=== PATIENT | female | born 1950 | race Caucasian/White ===

== ENCOUNTER → 2018-11-08 | Outpatient (CLI) | payer OTHER ==
--- NOTE | 2018-11-09 08:39 | HC ---
[facility] [place] [address] CONSULTATION Name: BRODERICK DICKERSON Room #: REG ANDRES M.Elza.#: [id number] Admission: 11/08/18 ������������������ Attend Phys: Racheal Badillo DO Discharge: ������������������ Date of : 50 Report #: [id number] THIS REPORT FOR: //name// CC: Shahram Badillo DATE OF SERVICE: 11/08/2018 PATIENT OF: Dr. Shahram Klein. CHIEF COMPLAINT: This is a very pleasant 68-year-old white female with a chief complaint of sudden onset of severe abdominal crampy pain followed by hematochezia. The patient states that last Monday she had a urinary tract infection and she was given Cipro for that. She did not know if it was related, but when she ate ice cream last night after taking her Cipro, she developed sudden onset of the pain and this was followed shortly thereafter by hematochezia. She has had episodes like this in the past that have been secondary to ischemic colitis and this sounds like it might be another episode. PAST MEDICAL HISTORY: Significant for hypertension and episodes of ischemic colitis. PAST SURGICAL HISTORY: Significant for section, and she had a total abdominal hysterectomy with bilateral salpingo-oophorectomy. ALLERGIES: No known drug allergies. MEDICATIONS: Prior to this time included vitamin D, multiple vitamins, losartan, hydrochlorothiazide, amlodipine, Toprol XL, aspirin and p.r.n. Xanax that she does not use very often. SOCIAL HISTORY: She does not smoke. She drinks alcohol occasionally. FAMILY HISTORY: Negative for colon polyps, colon cancer, Crohn's disease and ulcerative colitis, except for Crohn's disease in a cousin. This was her first cousin. REVIEW OF SYSTEMS: She denies any dysphagia or odynophagia. She does have gastroesophageal reflux symptoms. She has no history of a hiatal hernia or peptic ulcer disease. Her weight has been stable. Her appetite is good. She denies any nausea or vomiting, change in weight, change in appetite, jaundice, hepatitis, cholelithiasis, cholecystitis or pancreatitis. She denies any increasing constipation or diarrhea. Denies any hematemesis or melena. She has [facility] [address] [place] [address] CONSULTATION Name: BRODERICK DICKERSON Room #: REG [facility] Yanira.#: [id number] Admission: 11/08/18 ������������������ Attend Phys: Racheal Badillo DO Discharge: ������������������ Date of : 50 Report #: [id number] had hematochezia as described above in the chief complaint. She denies any abdominal pain at this time, but did have crampy, diffuse lower abdominal pain prior to the hematochezia. She denies any fevers or chills, shortness of breath, chest pain, dizziness or syncope. PHYSICAL EXAMINATION: GENERAL: Reveals a well-developed, well-nourished 68-year-old white female in no apparent distress at the time of the examination. She is awake, alert and oriented x 4 and cooperative and very pleasant to converse with. HEENT: She is normocephalic and atraumatic and anicteric. HEART: Rate and rhythm are regular with a normal S1 and S2. LUNGS: Clear bilaterally. ABDOMEN: Soft. Bowel sounds are present in all 4 quadrants. There is no palpable organomegaly or mass. There is some mild tenderness in the lower abdomen, but no rebound or guarding. EXTREMITIES: Warm and dry. No peripheral cyanosis, clubbing or edema. NEUROLOGIC: She appears grossly intact without lateralizing signs. IMPRESSION: 1. Crampy abdominal pain followed by defecation and then hematochezia. The patient has a history of ischemic colitis and it sounds like this may be another episode. 2. Hypertension. 3. Gastroesophageal reflux. 4. History of colon polyps. The patient is overdue for colonoscopy. RECOMMENDATIONS: My recommendations are to proceed with a flexible sigmoidoscopy at this time. We will also recommend that she have a full colonoscopy as soon as possible because she has had adenomatous colon polyps in the past and the last colonoscopy was 6 or 8 years ago. Thank you very much once again for allowing me to participate in her care. ��������������������������������������������� <ELECTRONICALLY SIGNED> ���������������������������������������� By: Racheal Badillo DO ��������������������������������������������� 11/09/18 0839 [id number] Racheal Badillo DO /nt
--- NOTE | 2018-11-09 08:40 | O ---
[facility] [place] [address] OPERATIVE REPORT Name: BRODERICK DICKERSON Room #: REG ANDRES M.Elza.#: [id number] Admission: 11/08/18 ������������������ Attend Phys: Racheal Badillo DO Discharge: ������������������ Date of : 50 Report #: [id number] THIS REPORT FOR: //name// CC: Shahram Badillo FLEXIBLE SIGMOIDOSCOPY WITH BIOPSIES. INDICATION FOR PROCEDURE: Evaluate crampy lower abdominal pain followed by the passage of stools and then followed by bright red blood per rectum. Informed consent for this procedure was obtained prior to the administration of any medication. The risks of the procedure, which include but are not limited to bleeding, perforation, infection, complications of sedation and the possibility I could miss something were explained to the patient and she has indicated her consent by signing. With the patient in the left lateral decubitus position, digital rectal exam was performed and no abnormalities were palpated. Then, the Olympus colonoscope was introduced through the anal sphincter and advanced under direct visualization to the mid transverse colon. Findings are noted on withdrawal of the scope. In the midtransverse colon, the mucosa lining of the colon appears normal, but it abruptly changes to an ulcerated erythematous, ecchymotic-appearing colon. This extends from the midtransverse colon in a linear fashion all the way down to the proximal sigmoid colon at about 35 cm. Multiple biopsies were obtained throughout this area for histopathology to evaluate for possible ischemia, which I suspect this is. Good hemostasis was noted after all of the biopsies. The unaffected mucosa appeared normal completely. The distal sigmoid colon appears normal. Rectum, normal mucosa. Retroflex view did not reveal any further abnormalities. The scope was withdrawn. The patient went to the recovery area in stable condition. She tolerated the procedure well. IMPRESSION: Segment of ulcerated ecchymotic-appearing mucosa extending from 35 cm to the midtransverse colon. Biopsies pending. RECOMMENDATIONS: To await the biopsy results. I will ask that she continue taking her previously prescribed Cipro that she was taking for urinary tract infection for this ulcerated colon that I suspect is ischemia. She is not having any abdominal cramping pain, so I think that her collateral circulation has been adequate. I would recommend she continue 1 aspirin daily as prophylaxis against possible recurrence of this ischemia. [address] [address] OPERATIVE REPORT Name: BRODERICK DICKERSON Room #: REG ANDRES Alegria#: [id number] Admission: 11/08/18 ������������������ Attend Phys: Racheal Badillo DO Discharge: ������������������ Date of : 50 Report #: [id number] Thank you very much once again for allowing me to participate in her care, Dr. Klein. ��������������������������������������������� <ELECTRONICALLY SIGNED> ���������������������������������������� By: Racheal Badillo DO ��������������������������������������������� 11/09/18 0840 [id number] Racheal Badillo DO /nt
--- NOTE | 2018-11-13 10:07 | PATH ---
[facility] [address] [place] [address] PATHOLOGY RPT PROCEDURE Name: PAVITHRA DICKERSON Room #: REG Ravindra MAlyssaR.#: [id number] ������������������ Admission: 11/08/18 ������������������ Date of : 50 Discharge: Report #: [id number] Path Case #: [id number] [facility] Accession Number: [id number] . 01 Material submitted: . colon - BIOPSY OF DESCENDING SEGMENTAL ULCERATED COLON. Modifiers: descending . 01 Clinical history: . R/O ischemic . 02 Diagnosis: Large intestine, descending segmental ulceration colon R/O ischemia, endoscopic biopsy: - Compatible with hemorrhagic ischemic colitis (please see comment). - Negative for dysplasia or malignancy. (IUV:harry; 11/12/2018) QMS/11/12/2018 . 02 Comment: Examination shows fibrotic lamina propria with focal ulceration, regenerative surface epithelium as well as crypt atypia. There is extensive hemorrhage present within the lamina propria. Fibrin-filled vessels are not identified. Findings are compatible with ischemic colitis. Please note chronic diverticulitis associated with hemorrhage may resemble these changes while in the process of healing. Clinical correlation is suggested. (IUV:harry; 11/12/2018) . 02 Electronically signed: . Karlie Chou MD, Pathologist NPI- [id number] . 01 Gross description: . Received in formalin labeled "Pavithra Dickerson BX of descending segmental ulcerated colon R/O ischemic," are four segments of rodriguez-brown soft tissue measuring 0.5 x 0.4 x 0.2 cm in aggregate dimensions and ranging from 0.2 to 0.3 cm in maximum dimension. The specimen is submitted entirely in cassette A1. The smallest segment may not survive processing. (DAC; 11/09/2018) XDC/XDC . 02 Pathologist provided ICD-10: K55.9 . 02 CPT . 505[address] [place] [address] PATHOLOGY RPT PROCEDURE Name: PAVITHRA DICKERSON Room #: REG CLI Yanira.#: [id number] ������������������ Admission: 11/08/18 ������������������ Date of : 50 Discharge: Report #: [id number] Path Case #: [id number] Specimen Comment: A courtesy copy of this report has been sent to Specimen Comment: [phone]. Specimen Comment: Report sent to Performed at: 01 [address], [place] [id number] MD Jaret Kelley MD Phone: [phone] Performed at: [address] [id number] MD Karlie Chou MD Phone: [phone]
== END | disposition home or self-care (01) ==
LOC: GI 12:24
DX: K55.9 Vascular disorder of intestine, unspecified (principal); I10 Essential (primary) hypertension; K21.9 Gastro-esophageal reflux disease without esophagitis; Z98.890 Other specified postprocedural states; Z90.710 Acquired absence of both cervix and uterus; Z79.899 Other long term (current) drug therapy
CPT/HCPCS: 62110; 62900; 70005

== ENCOUNTER → 2019-09-13 | Outpatient (CLI) | payer OTHER | LOC: SJCVC 14:50 | DX: I10 Essential (primary) hypertension (principal); E78.5 Hyperlipidemia, unspecified; R00.1 Bradycardia, unspecified; R06.09 Other forms of dyspnea ==

== ENCOUNTER → 2019-10-14 | Outpatient (CLI) | payer OTHER | LOC: SJCVCIMAG 09:42 | PROVIDERS: ATTEND Internal Medicine | DX: I49.3 Ventricular premature depolarization (principal); R42 Dizziness and giddiness; I10 Essential (primary) hypertension; E78.5 Hyperlipidemia, unspecified ==

== ENCOUNTER → 2020-12-23 | Outpatient (CLI) | payer OTHER | LOC: SJCVC 13:33 | PROVIDERS: ATTEND Internal Medicine | DX: R00.1 Bradycardia, unspecified (principal); I10 Essential (primary) hypertension; E78.5 Hyperlipidemia, unspecified; F41.9 Anxiety disorder, unspecified; Z72.89 Other problems related to lifestyle; Z79.82 Long term (current) use of aspirin; Z79.899 Other long term (current) drug therapy ==